=== PATIENT | female | born 1990 | race Caucasian/White ===

== ENCOUNTER 2021-04-20 06:06 | Inpatient (IN) ==
[2021-04-20 06:43] LABS: ABS Basophils 0.1 10^3/ul (0-0.2); ABS Eosinophils 0.1 10^3/ul (0-0.6); ABS Lymphocytes 2.6 10^3/ul (1.0-4.8); ABS Monocytes 0.7 10^3/ul (0-0.8); ABS Neutrophils 5.2 10^3/ul (1.5-7.7); Eosinophil % 1.4 %; Hematocrit 40 % (35-47); Lymphocyte % 29.4 %; Mean Corpuscular HGB Conc 35 g/dL (31-36); Mean Corpuscular Hemoglobin 32 pg (27-31); Mean Corpuscular Volume 91 fL (80-97); Mean Platelet Volume 8.5 fL (7.4-10.4); Platelet Count 284 10^3/uL (150-450); Red Blood Count 4.42 10^6 /uL (3.70-4.87); Red Cell Distribution Width 13 % (10-15); White Blood Count 8.7 10^3/uL (3.5-10.8)
[2021-04-20] MEDS ORDERED: Sodium Citrate/Citric Acid LIQ 15 ML UDC PO ONE (07:32)
[2021-04-20] MEDS ORDERED: Buffered Lidocaine 1% SYRIN 1 ml INTRADERM ONE (07:32)
[2021-04-20] MEDS ORDERED: Sodium Citrate/Citric Acid LIQ 15 ML UDC ONE (07:36)
[2021-04-20] MEDS ORDERED: Phenylephrine 40 mcg/mL 10mL (400mcg) SYRINGE ONE (07:38)
[2021-04-20] MEDS ORDERED: Oxytocin 10 UNITS/ML 1 ML VIAL ONE (07:38)
[2021-04-20] MEDS ORDERED: Morphine PF AMP (0.5MG/ML) 5 MG/10 ML AMP ONE (07:38)
[2021-04-20] MEDS ORDERED: fentaNYL 100 mcg/2 ml 50 MCG/ML VIAL IV PRN (07:48)
[2021-04-20] MEDS ORDERED: Ondansetron 4 mg VIAL 2 MG/ML 2 ml VIAL IV PRN ×2 (07:48→08:37)
[2021-04-20] MEDS ORDERED: Naloxone 0.4 mg VIAL 0.4 mg/ml 1 ml VIAL IV PRN ×2 (07:48→08:37)
[2021-04-20] MEDS ORDERED: Lactated Ringers 1000 ml BAG 1,000 ML IV SCH ×2 (08:00→10:00)
[2021-04-20] MEDS ORDERED: GENTAMICIN ADULT IVPB ONE (08:00)
[2021-04-20] MEDS ORDERED: NS 0.9% IVPB ONE (08:00)
[2021-04-20] MEDS ORDERED: Clindamycin 900 MG/D5W BAG IVPB ONE (08:00)
[2021-04-20] MEDS ORDERED: diPHENhydraMINE IV 50 MG/ML 1 ml VIAL (BENADRYL) IV PRN (08:37)
[2021-04-20] MEDS ORDERED: oxyCODONE/Acetamin 5/325 mg TAB PO PRN (08:37)
[2021-04-20] MEDS ORDERED: Glycerin ADULT 2.4 gm SUPP PR PRN (09:56)
[2021-04-20] MEDS ORDERED: Dibucaine 1% OINT 28.35 GM TUBE PR PRN (09:56)
[2021-04-20] MEDS ORDERED: Witch Hazel PAD JAR TOPICAL PRN (09:56)
[2021-04-20] MEDS ORDERED: Oxytocin in LR 20 UNITS/1,000 ML BAG IVPB SCH (10:00)
[2021-04-20] MEDS: oxyCODONE/Acetamin 5/325 mg TAB PO PRN ×3 (10:59→19:01)
[2021-04-20 11:51] LABS: Urine Appearance Clear; Urine Bilirubin Negative (Negative); Urine Blood Negative (Negative); Urine Color Straw; Urine Glucose Negative (Negative); Urine Ketones Negative (Negative); Urine Nitrite Negative (Negative); Urine Protein Negative (Negative); Urine Specific Gravity 1.004 (1.002-1.030); Urine Urobilinogen Negative (Negative)
[2021-04-20 12:41] LABS: Urine Benzodiazepine Screen None Detected (None Detect); Urine Cannabinoids Screen None Detected (None Detect); Urine Opiates Screen None Detected (None Detect)
[2021-04-21 07:49] LABS: ABS Basophils 0.1 10^3/ul (0-0.2); ABS Eosinophils 0.1 10^3/ul (0-0.6); ABS Lymphocytes 1.8 10^3/ul (1.0-4.8); ABS Monocytes 0.9 10^3/ul (0-0.8); Eosinophil % 0.8 %; Hematocrit 33 % (35-47); Hemoglobin 11.6 g/dL (12.0-16.0); Lymphocyte % 16.6 %; Mean Corpuscular HGB Conc 36 g/dL (31-36); Mean Corpuscular Hemoglobin 33 pg (27-31); Mean Corpuscular Volume 91 fL (80-97); Mean Platelet Volume 7.8 fL (7.4-10.4); Platelet Count 219 10^3/uL (150-450); Red Blood Count 3.57 10^6 /uL (3.70-4.87); Red Cell Distribution Width 13 % (10-15); White Blood Count 10.9 10^3/uL (3.5-10.8)
[2021-04-21] MEDS: Cholecalciferol (VIT D3) 1,000 unit TAB PO SCH (08:06)
[2021-04-22] MEDS: Cholecalciferol (VIT D3) 1,000 unit TAB PO SCH (08:53)
[2021-04-23 08:15] VITALS: BP 117/72
[2021-04-23] MEDS ORDERED: Scopolamine PATCH Remove NOTE PATCH OFF PRN (08:37)
[2021-04-23] MEDS: Cholecalciferol (VIT D3) 1,000 unit TAB PO SCH (09:14)
== END 2021-04-23 15:55 | disposition home or self-care (01) | DRG 788 ==
LOC: MCHOB 06:06
PROVIDERS: ADMIT Obstetrics & Gynecology; ATTEND Obstetrics & Gynecology